=== PATIENT | female | born 1995 | race Caucasian/White ===

== ENCOUNTER 2016-10-19 16:41 | Emergency (ER) | payer OTHER ==
[~2016-10-19] VITALS: Ht 175.3 cm; Wt 175.0 kg
[~2016-10-19 16:41] MED LIST: 12 HOUR DECONG120 M1 PO; BENTYL10 MG PO; FLONASE16 G1 BOTH NARES; MUCUS ER600 MG PO; NAPROSYN500 MG PO; NAPROXEN500 MG PO; PRENATABS RX T1 EACH PO; ROBITUSSIN NIG118 ML PO; TESSALON PERLE100 MG PO; TYLENOL REGULA325 MG PO; VALIUM2 MG PO; VICODIN,LORT1 TABLET PO; ZITHROMAX Z-PA250 MG PO
[2016-10-19] MEDS ORDERED: NAPROSYN500 MG PO (17:54)
[2016-10-19 18:02] VITALS: BP 139/77
== END 2016-10-19 18:03 | disposition home or self-care (01) ==
LOC: RME 16:41 → EME 16:41 → RME 18:03
DX: S50.01XA Contusion of right elbow, initial encounter (principal); F17.200 Nicotine dependence, unspecified, uncomplicated; W18.30XA Fall on same level, unspecified, initial encounter
CPT/HCPCS: 73080; 99281; 99284

== ENCOUNTER 2017-03-22 12:19 | Emergency (ER) | payer OTHER ==
[~2017-03-22] VITALS: Ht 180.3 cm; Wt 126.0 kg
[2017-03-22] MEDS ORDERED: MOTRIN800 MG PO (14:01)
[2017-03-22] MEDS ORDERED: ULTRAM50 MG PO (14:01)
[2017-03-22 14:36] VITALS: BP 134/89
== END 2017-03-22 14:36 | disposition home or self-care (01) ==
LOC: EME 12:19
PROC: 2W3QX1Z Immobilization of Right Lower Leg using Splint (ICD-10-PCS; principal; 2017-03-22)
DX: M79.671 Pain in right foot (principal); M79.89 Other specified soft tissue disorders; W10.9XXA Fall (on) (from) unspecified stairs and steps, initial encounter; F17.200 Nicotine dependence, unspecified, uncomplicated
CPT/HCPCS: 73630; 99281; 99283